=== PATIENT | female | born 1975 | race Caucasian/White ===

== ENCOUNTER → 2021-01-21 09:18 | Outpatient (CLI) | payer BC, SELFPAY ==
[2021-01-22 08:44] LABS: CMV Acute Antibody IgM < 30.0 AU/mL (0.0-29.9); CMV Antibody IgG 0.93 U/mL (0.00-0.59)
== END ==
PROVIDERS: PCP Student in an Organized Health Care Education/Training Program; Referring Provider Student in an Organized Health Care Education/Training Program; Visit Provider Student in an Organized Health Care Education/Training Program
DX: R59.9 Enlarged lymph nodes, unspecified (principal); R59.0 Localized enlarged lymph nodes
CPT/HCPCS: 36415; 86644; 86645